=== PATIENT | female | born 1985 | race Caucasian/White ===

== ENCOUNTER 2016-07-21 12:38 | Emergency (ER) | payer OTHER ==
[2016-07-21 12:57] VITALS: TEMP 98.2; BMI 27.3
--- NOTE | 2016-07-21 14:03 | PDOC ---
History of Present Illness - General History Source: Patient, Spouse Exam Limitations: No Limitations - History of Present Illness Initial Comments: 07/21/16 14:14 The patient is a 31 year old female with no significant past medical history, presenting to the Emergency Department with diarrhea, and RLQ abdominal pain for three days. The patient reports that she has had episodes of diarrhea every time she eats or drinks. She admits that she is not able to sleep due to the pain and symptoms. The patients states that they ate [place] food a few days ago, but she is the only family member that is sick. She states she has tried many over the counter medications such as Pepto Bismol, with no relief. She admits that she has two small boys at home, though they are not sick. She denies previously having similar symptoms. The patient denies melena, or hematochezia. Patient denies fever, cough, and chills. Patient denies nausea, or vomiting. Patient denies back pain or neck pain. Patient denies dysuria, urinary frequency, and urgency. <Rocio Rodriguez - Last Filed: 07/21/16 14:14> <Carl Stewart - Last Filed: 07/21/16 17:11> - General Chief Complaint: Pain Stated Complaint: NAUSEA/ VOMITING Time Seen by Provider: 07/21/16 14:02 Past History <Rocio Rodriguez - Last Filed: 07/21/16 14:14> - Past Medical History Asthma: No Cancer: No Cardiac Disorders: No Diabetes: No HTN: No Seizures: No Thyroid Disease: No Other medical history: NONE - Psycho/Social/Smoking Cessation Hx Anxiety: No Suicidal Ideation: No Smoking History: Never smoked Have you smoked in the past 12 months: No Information on smoking cessation initiated: No Hx Alcohol Use: No Drug/Substance Use Hx: No Substance Use Type: None Hx Substance Use Treatment: No <Carl Stewart - Last Filed: 07/21/16 17:11> - Past Medical History Allergies/Adverse Reactions: Allergies Allergy/AdvReac Type Severity Reaction Status Date / Time No Known Allergies Allergy Verified 07/21/16 12:54 Home Medications: Ambulatory Orders Dicyclomine HCl [Bentyl] 10 mg PO TID #30 capsule 07/21/16 Loperamide HCl [Imodium -] 2 mg PO Q8H #21 capsule 07/21/16 Review of Systems - Review of Systems Able to Perform ROS?: Yes Comments:: 07/21/16 14:14 GENERAL/CONSTITUTIONAL: No fever or chills. No weakness. HEAD, EYES, EARS, NOSE AND THROAT: No change in vision. No ear pain or discharge. No sore throat. CARDIOVASCULAR: No chest pain or shortness of breath. RESPIRATORY: No cough, wheezing, or hemoptysis. GASTROINTESTINAL: + RLQ pain, + diarrhea. No nausea, vomiting, or constipation. GENITOURINARY: No dysuria, frequency, or change in urination. MUSCULOSKELETAL: No joint or muscle swelling or pain. No neck or back pain. SKIN: No rash NEUROLOGIC: No headache, vertigo, loss of consciousness, or change in strength/ sensation. ENDOCRINE: No increased thirst. No abnormal weight change. HEMATOLOGIC/LYMPHATIC: No anemia, easy bleeding, or history of blood clots. ALLERGIC/IMMUNOLOGIC: No hives or skin allergy. <Rocio Rodriguez - Last Filed: 07/21/16 14:14> *Physical Exam - Vital Signs Last Vital Signs Temp Pulse Resp BP Pulse Ox 98.2 F 90 18 123/80 100 07/21/16 12:55 07/21/16 12:55 07/21/16 12:55 07/21/16 12:55 07/21/16 12:55 - Physical Exam Comments: 07/21/16 14:15 GENERAL: Awake, alert, and fully oriented, in no acute distress HEAD: No signs of trauma EYES: PERRLA, EOMI, sclera anicteric, conjunctiva clear ENT: Auricles normal inspection, hearing grossly normal, nares patent, oropharynx clear without exudates. Moist mucosa NECK: Normal ROM, supple, no lymphadenopathy, JVD, or masses LUNGS: Breath sounds equal, clear to auscultation bilaterally. No wheezes, and no crackles HEART: Regular rate and rhythm, normal S1 and S2, no murmurs, rubs or gallops ABDOMEN: Tenderness to palpation at the RLQ, no gaurding, no rebound. Soft, normoactive bowel sounds. No masses EXTREMITIES: Normal range of motion, no edema. No clubbing or cyanosis. No cords, erythema, or tenderness NEUROLOGICAL: Cranial nerves II through XII grossly intact. Normal speech SKIN: Warm, Dry, normal turgor, no rashes or lesions noted. <Rocio Rodriguez - Last Filed: 07/21/16 14:14> - Vital Signs Last Vital Signs Temp Pulse Resp BP Pulse Ox 98.2 F 90 18 123/80 100 07/21/16 12:55 07/21/16 12:55 07/21/16 12:55 07/21/16 12:55 07/21/16 12:55 <Carl Stewart - Last Filed: 07/21/16 17:11> ED Treatment Course - LABORATORY CBC & Chemistry Diagram: 07/21/16 12:58 07/21/16 12:58 <Carl Stewart - Last Filed: 07/21/16 17:11> *DC/Admit/Observation/Transfer - Attestations Scribe Attestion: 07/21/16 14:16 Documentation prepared by Rocio Rodriguez, acting as chief medical physicist for Carl Stewart DO. <Rocio Rodriguez - Last Filed: 07/21/16 14:14> - Discharge Dispostion Admit: No - Attestations Physician Attestion: 07/21/16 14:03 I, Dr. Carl Stewart, attest that this document has been prepared under my direction and personally reviewed by me in its entirety. I further attest, that it accurately reflects all work, treatment, procedures and medical decision -making performed by me. <Calr Stewart - Last Filed: 07/21/16 17:11> Diagnosis at time of Disposition: Gastroenteritis - Discharge Dispostion Disposition: HOME Condition at time of disposition: Good - Prescriptions Prescriptions: Dicyclomine HCl [Bentyl] 10 mg PO TID #30 capsule Loperamide HCl [Imodium -] 2 mg PO Q8H #21 capsule - Patient Instructions Printed Discharge Instructions: DI for Viral Gastroenteritis -- Adult Additional Instructions: Sarah- The immodium pills are for diarrhea. The zofran is for nausea. Clear Liquids only until the diarrhea stops completely Follow up with your doctor after memorial day Return to us if any problems or worse in any way. Best- Dr. Carl Stewart
[2016-07-21] MEDS ORDERED: SODIUM CHLORIDE 1,000 ML IV STA (14:05)
[2016-07-21] MEDS ORDERED: ONDANSETRON 4 MG/2 ML VIAL IVPB ONE (14:05)
[2016-07-21] MEDS ORDERED: ONDANSETRON 4 MG/2 ML VIAL ONE (14:53)
[2016-07-21 14:55] LABS: BASOPHIL 0.7 % (0-2.0); EOSINOPHIL 2.3 % (0-4.5); MCH 24.6 pg (25.7-33.7); MCHC 32.1 g/dl (32.0-36.0); MEAN CELL VOLUME 76.6 fl (80-96); NEUTROPHILS 78.9 % (42.8-82.8); PLATELET COUNT 261 K/MM3 (134-434); RDW 16.2 % (11.6-15.6)
[2016-07-21 15:14] LABS: INR 1.26 (0.82-1.09); PROTHROMBIN TIME (PATIENT) 13.9 SEC (9.98-11.88)
[2016-07-21 15:20] LABS: ALBUMIN 3.9 g/dl (3.4-5.0); ALK PHOS 106 U/L (45-117); ANION GAP 9 (8-16); BILIRUBIN,TOTAL 0.3 mg/dL (0.2-1.0); CALCIUM 9.1 mg/dL (8.5-10.1); CO2 25 mmol/L (21-32); CREATININE 0.7 mg/dL (0.55-1.02); GLUCOSE,RANDOM 96 mg/dL (74-106); SGOT/AST 31 U/L (15-37); SGPT/ALT 32 U/L (12-78); TOT PROT 8.4 g/dl (6.4-8.2)
[2016-07-21] MEDS ORDERED: DIPHENOXYLATE 2.5/ATROPINE.025 1 COMBO TABLET PO ONE (17:02)
[2016-07-21 17:09] LABS: URINE APPEARANCE CLEAR; URINE BILIRUBIN NEGATIVE (NEGATIVE); URINE COLOR YELLOW; URINE GLUCOSE (UA) NEGATIVE (NEGATIVE); URINE KETONE NEGATIVE (NEGATIVE); URINE NITRITE NEGATIVE (NEGATIVE); URINE UROBILINOGEN NEGATIVE E.U./dl (0.2-1.0)
[2016-07-21 17:29] LABS: URINE BLOOD 3+ (NEGATIVE); URINE LEUK ESTERASE TRACE (NEGATIVE); URINE PROTEIN 1+ (NEGATIVE)
[2016-07-21 17:30] LABS: URINE HYALINE CAST 3 /lpf; URINE MUCUS RARE; URINE RBC 106 /hpf (0-3); URINE WBC 11 /hpf (3-5)
[2016-07-21] MEDS ORDERED: DIPHENOXYLATE 2.5/ATROPINE.025 1 COMBO TABLET ONE (17:57)
[2016-07-21 18:35] VITALS: BP 120/76; PULSE 82
== END 2016-07-21 18:34 | disposition home or self-care (01) ==
LOC: JER 12:38
PROC: 3E033GC Introduction of Other Therapeutic Substance into Peripheral Vein, Percutaneous Approach (ICD-10-PCS; principal; 2016-07-21)
DX: K52.9 Noninfective gastroenteritis and colitis, unspecified (principal)
CPT/HCPCS: 36415; 80053; 81003; 81015; 83690; 84703; 85025; 85610; 96374; 99282-25

== ENCOUNTER 2018-12-23 09:15 | Inpatient (IN) | payer OTHER ==
[2018-12-23] MEDS ORDERED: ELECTROLYTE-148 SOLN 1,000 ML IV SCH (11:15)
--- NOTE | 2018-12-23 11:17 | HP ---
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: Alzheimer's, CVA, Dementia, Migraine, Multiple Sclerosis, Peripheral Neuropathy, Parkinson's, Seizure, Syncope, TIA, Vertigo, Other Cardiovascular: No: AFIB, Aneurysm, Aortic Insufficiency, Aortic Stenosis, CAD, CHF, Deep Vein Thrombosis, HTN, Hyperlipdemia, [place], Mitral Insufficiency, Mitral Stenosis, Murmur, Pulmonary Hypertension, Other Pulmonary: No: Asthma, Bronchitis, Cancer, COPD, O2 Dependent, Pneumonia, Previously Intubated, Pulmonary Embolus, Pulmonary Fibrosis, Sleep Apnea, Other Gastrointestinal: No: Ascites, Cancer, Constipation, Crohn's Disease, Diverticulitis, Diverticulosis, Esophageal Varices, Gastritis, GERD, GI Bleed, Hemorrhoids, Hiatal Hernia, Inflamatory Bowel Disease, Irritable Bowel Disease, Pancreatitis, Peptic Ulcer Disease, Ulcerative Colitis, Other Hepatobiliary: No: Cirrhosis, Cholelithiasis, Cholecystitis, Choledocholithiasis , Hepatitis A, Hepatitis B, Hepatitis C, Other Renal/: No: Renal Failure, Renal Inusuff, BPH, Cancer, Hematuria, Hemodialysis , Neurogenic Bladder, Renal Calculi, UTI, Other Reproductive: No: Ectopic , Endometriosis, Fibroids, PID, Polycystic Ovary Syndrome, Postmenopausal, Other ...: 3 ...Para: 2 ...Term: 0 ...: 2 ...Spon : 0 ...Induced : 0 ...LMP: 04/06/18 ... Weeks Gestation by Dates: 37.1 ...EDC by Dates: 01/12/19 ...EDC by Sono: 01/12/19 Heme/Onc: Yes: Anemia Infectious Disease: No: AIDS, C-Diff, Herpes Zoster, HIV, MRSA, STD's, Tuberculosis, VREF, Other Psych: No: Addictions, Anxiety, Bipolar, Depression, Panic, Psychosis, Schizophrenia, Other Musculoskeletal: No: Bursitis, Chronic low back pain, Hemiparesis, Hemiplegia, Osteoarthritis, Paraplegia, Other Rheumatology: No: Fibromyalgia, Gout, Lupus, Rheumatoid Arthritis, Sarcoidosis, Vasculitis, Other ENT: No: Allergic Rhinitis, Sinusitis, Other Endocrine: No: Niobrara's Disease, Roger's Disease, Diabetes Insipidus, Diabetes Mellitus, Hyperparathyroidism, Hyperthyroidism, Hypothyroidism, Osteopenia, SIADH, Other Dermatology: No: Basal Cell, Cellulitis, Eczema, Melanoma, Psoriasis, Squamous Cell, Other - Past Surgical History Past Surgical History: No: None, AAA Repair, AICD, Amputation, Appendectomy, Arthrosocopy, AV Fistula/Graft, Bariatric Surgery, Breast Biopsy, Bypass, CABG, Carotid Endarterectomy, Cataract Removal, Cholecystectomy, Colectomy, Colonoscopy, Colostomy, Craniotomy, , Cystectomy, Hernia Repair, Hysterectomy, Ileal Conduit, Ileosotomy, Joint Replacement, Kidney Transplant, Laminectomy, Liver Transplant, Mastectomy, Nephrectomy, Oopherectomy, Orchiectomy, Permanent Pacemaker, Prostatectomy, Splenectomy, Stent, Thoracotomy , TURP, Tonsillectomy, Tubal Ligation, Upper Endoscopy, Valve Replacement, Vasectomy, Vein Stripping/Ligation Hx Myomectomy: No Hx Transabdominal Cerclage: No - Smoking History Smoking history: Never smoked Have you smoked in the past 12 months: No - Alcohol/Substance Use Hx Alcohol Use: No Home Medications - Allergies Allergies/Adverse Reactions: Allergies Allergy/AdvReac Type Severity Reaction Status Date / Time No Known Allergies Allergy Verified 07/21/16 12:54 - Home Medications Home Medications: Ambulatory Orders Dicyclomine HCl [Bentyl] 10 mg PO TID #30 capsule 07/21/16 Loperamide HCl [Imodium -] 2 mg PO Q8H #21 capsule 07/21/16 Family Medical History Family History: Unremarkable Review of Systems Findings/Remarks: Mild pelvic pressure and contractions - Review of Systems Constitutional: reports: No Symptoms Eyes: reports: No Symptoms HENT: reports: No Symptoms Neck: reports: No Symptoms Cardiovascular: reports: No Symptoms Respiratory: reports: No Symptoms Gastrointestinal: reports: No Symptoms Genitourinary: reports: Other (mucus plu) Breasts: reports: No Symptoms Reported Musculoskeletal: denies: No Symptoms, Back Pain, Crepitus, Decreased ROM, Extremity Pain, Joint Pain, Joint Swelling, Muscle Pain, Muscle Cramps, Muscle Weakness, Other Integumentary: denies: No Symptoms, Blister, Bruising, Change in Color, Eczema, Erythema, Incision, Lesions, Lump, Pallor, Pruritis, Rash, Wound, Other Neurological: denies: No Symptoms, Change in LOC, Change in Speech, Confusion, Dizziness, Headache, Incoordination, Numbness, Parasthesia, Pre-Existing Deficit , Seizure, Syncope, Tremors, Unsteady Gait, Weakness, Other Endocrine: denies: No Symptoms, Excessive Sweating, Flushing, Increased Hunger, Increased Thirst, Intolerance to Cold, Intolerance to Heat, Unexplained Weight Gain, Unexplained Weight Loss, Other Hematology/Lymphatic: denies: No Symptoms, Easily Bruised, Excessive Bleeding, Swollen Glands, Other Psychiatric: reports: No Symptoms Physical Exam - Maternity Vital Signs: Vital Signs Temperature 98.7 F 12/23/18 10:15 Pulse Rate 67 12/23/18 10:15 Respiratory Rate 20 12/23/18 10:15 Blood Pressure 137/79 12/23/18 10:15 O2 Sat by Pulse Oximetry (%) Constitutional: Yes: Calm HENT: Yes: Atraumatic Neck: Yes: Supple Cardiovascular: Yes: Regular Rate and Rhythm Breast(s): Yes: Other (deferred) - Abdominal Exam/OB Number of Fetuses: Single Presentation: Vertex (bedside sono: Cephalic, OP, amniotic fluid subjectively normal) Contractions: Yes Regularity: Regular Intensity: Mild/Mod Monitor Mode: External Category: I Accelerations: Uniform Decelerations: None - Vaginal Exam/OB Vaginal Bleediing: Yes Speculum Exam: No Dilatation (cm): 6 Effacement (%): 60 Amniotic Membrane Status: Intact Nitrazine Test: Negative Presentation: Vertex/Position Station: -3 - Physical Exam Musculoskeletal: Yes: WNL Extremities: Yes: WNL Edema: Yes Edema: LLE: Trace, RLE: Trace Integumentary: Yes: WNL Deep Tendon Reflex Grade: Normal +2 ...Motor Strength: WNL Psychiatric: Yes: Alert, Oriented Imaging - Results Ultrasound: Report Reviewed Assessment/Plan 33 y/o @ 37.1wks, active labor, reassuring status and stable maternal condition. Patient OB summary reviewed and significant for possible marginal cord insertion and mild anemia, GBS negative. -Admission -intermittent monitoring -ambulation Ok -Pain control PRN -Expectant management
[2018-12-23 11:47] LABS: HEMATOCRIT 29.5 % (32.4-45.2); RBC 4.34 M/mm3 (3.60-5.2); WHITE BLOOD COUNT 9.2 K/mm3 (4.0-10.0)
[2018-12-23 11:48] LABS: BASO % 1.1 % (0-2.0); EOS % 0.6 % (0-4.5); LYMPH % 14.1 % (8-40); MCH 20.8 pg (25.7-33.7); MCHC 30.6 g/dl (32.0-36.0); MEAN PLT VOLUME 9.7 fl (7.5-11.1); MONO % 4.5 % (3.8-10.2); NEUT % 79.7 % (42.8-82.8); PLATELET COUNT 252 K/MM3 (134-434); RDW 19.3 % (11.6-15.6)
[2018-12-23 11:58] LABS: INR 0.95 (0.83-1.09); PROTHROMBIN TIME (PATIENT) 11.2 SEC (9.7-13.0)
[2018-12-23 12:01] VITALS: BMI 27.1
[2018-12-23 12:01] LABS: ACTIVATED PTT 27.1 SECONDS (25.2-36.5)
[2018-12-23 12:16] LABS: BLOOD UREA NITROGEN 9.8 mg/dL (7-18); CALCIUM 8.5 mg/dL (8.5-10.1); CREATININE 0.6 mg/dL (0.55-1.3); POTASSIUM 3.9 mmol/L (3.5-5.1)
[2018-12-23 12:26] LABS: ANISOCYTOSIS 2+; MACROCYTOSIS 0; PLATELET ESTIMATE NORMAL
[2018-12-23] MEDS ORDERED: OXYTOCIN 30 UNITS in 0.9% NS 30 UNIT/500 ML INFUS.BAG IVPB ONE (12:53)
[2018-12-23] MEDS ORDERED: OXYTOCIN 30 UNITS in 0.9% NS 30 UNIT/500 ML INFUS.BAG IVPB SCH (13:00)
[2018-12-23] MEDS ORDERED: DEXTROSE 5%-LACTATED RINGERS 1,000 ML IV SCH (13:00)
--- NOTE | 2018-12-23 13:30 | PN ---
Ante-Partal Exam - Subjective Subjective: Patient evaluated for progression of labor Vital Signs: Vital Signs Temperature 98.5 F 12/23/18 11:00 Pulse Rate 66 12/23/18 11:00 Respiratory Rate 20 12/23/18 11:00 Blood Pressure 131/73 12/23/18 11:00 O2 Sat by Pulse Oximetry (%) Bleeding: No Headache: No Visual changes: No Right upper quadrant pain: No - Contractions Contractions: Yes Regularity: Irregular Intensity: Mild/Mod Monitor Mode: External - Exam during Labor Heart Rate: 145 Variability: Moderate Category: I Monitor Accelerations: Present Monitor Decelerations: None Exam: Vaginal Dilatation (cm): 6 Effacement (%): 60 Amniotic Membrane Status: Intact Presentation: Vertex Station: -3 - Assessment/Plan Assessment/Plan: No significant cervical change from previous exam, reassuring status, stable maternal condition, OP position -Augmentation with pitocin -continuous monitoring
--- NOTE | 2018-12-23 14:09 | PN ---
Progress Note, Labor Vaginal Exam #1 Labor Exam Date: 12/23/18 Labor Exam Time: 14:08 Heart Rate (range): Cat I Dilatation: 7 Effacement (%): 90 Amniotic Membrane Status: Ruptured Presentation: Vertex/Position Station: -2 Remarks: Pt comfortable AROM, clears Discussed epidural prn pain Anticipate LOREN Pineda MD
[2018-12-23] MEDS: OXYTOCIN 20 UNITS in 0.9% NS 20 UNIT/1,000 ML INFUS.BAG IV SCH ×2 (14:25→18:50)
[2018-12-23] MEDS ORDERED: OXYTOCIN 20 UNITS in 0.9% NS 20 UNIT/1,000 ML INFUS.BAG IV ONE ×2 (14:25→18:51)
[2018-12-23] MEDS ORDERED: METHYLERGONOVINE MALEATE 0.2 MG/1 ML AMP IM PRN (14:37)
[2018-12-23] MEDS ORDERED: ACETAMINOPHEN 325 MG TABLET (FP) PO PRN (14:37)
[2018-12-23] MEDS ORDERED: BISACODYL 10 MG SUPP.RECT RC PRN (14:37)
[2018-12-23] MEDS ORDERED: BENZOCAINE 20% 57 GM BOTTLE TP PRN (14:37)
[2018-12-23] MEDS ORDERED: BENZOCAINE 28 GM HEMORRHOIDAL OINTMENT TP PRN (14:37)
[2018-12-23] MEDS ORDERED: WITCH HAZEL 50% (TUCKS) 40 PAD/JAR PAD TP PRN (14:37)
--- NOTE | 2018-12-23 14:37 | PN ---
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 No nuchal. No meconium. Spontaneous delivery of anterior shoulder and remaining body. Cord clamped and cut. Infant handed over to nursing staff. Vigorous. Weight pending. Apgars 9/9. Spontaneous delivery of intact placenta with 3VC. Perineum inspected, superficial midline degree noted but not bleeding and therefore not repaired. EBL 250ml. Fundus firm. Mother and baby doing well. Mari Pineda MD
[2018-12-23] MEDS ORDERED: IBUPROFEN 600 MG TABLET (FP) PO ONE (17:38)
[2018-12-23] MEDS: IBUPROFEN 600 MG TABLET (FP) PO PRN (17:45)
[2018-12-24 08:46] LABS: BASO % 0.8 % (0-2.0); EOS % 1.1 % (0-4.5); HEMATOCRIT 27.3 % (32.4-45.2); HEMOGLOBIN 8.4 GM/dL (10.7-15.3); LYMPH % 14.9 % (8-40); MCH 20.8 pg (25.7-33.7); MCHC 30.6 g/dl (32.0-36.0); MEAN CELL VOLUME 67.9 fl (80-96); MONO % 4.1 % (3.8-10.2); NEUT % 79.1 % (42.8-82.8); PLATELET COUNT 219 K/MM3 (134-434); RBC 4.02 M/mm3 (3.60-5.2); RDW 19.6 % (11.6-15.6); WHITE BLOOD COUNT 11.3 K/mm3 (4.0-10.0)
[2018-12-24] MEDS: IBUPROFEN 600 MG TABLET (FP) PO PRN (08:51)
--- NOTE | 2018-12-24 08:57 | PN ---
Post Progress Note - Subjective Subjective: Doing well. Pain controlled. Post Day: 1 Type of Delivery: Vital Signs: Vital Signs Temperature 98.8 F 12/24/18 06:00 Pulse Rate 61 12/24/18 06:00 Respiratory Rate 18 12/24/18 06:00 Blood Pressure 116/59 L 12/24/18 06:00 O2 Sat by Pulse Oximetry (%) 98 12/23/18 14:45 Uterus: Yes: Fundus below umbilicus Abdomen/GI: Yes: Abdomen soft, Passing flatus, Tolerating PO Lochia: Yes: Rubra Lochia, amount: Small Extremities: Yes: Calves non-tender Perineum: Yes: Intact Activity: Ambulating - Labs Labs: CBC WBC 9.2 K/mm3 (4.0-10.0) 12/23/18 11:25 RBC 4.34 M/mm3 (3.60-5.2) 12/23/18 11:25 Hgb 9.0 GM/dL (10.7-15.3) L 12/23/18 11:25 Hct 29.5 % (32.4-45.2) L D 12/23/18 11:25 MCV 68.0 fl (80-96) L 12/23/18 11:25 MCH 20.8 pg (25.7-33.7) L D 12/23/18 11:25 MCHC 30.6 g/dl (32.0-36.0) L 12/23/18 11:25 RDW 19.3 % (11.6-15.6) H 12/23/18 11:25 Plt Count 252 K/MM3 (134-434) 12/23/18 11:25 MPV 9.7 fl (7.5-11.1) 12/23/18 11:25 Absolute Neuts (auto) 7.4 K/mm3 (1.5-8.0) 12/23/18 11:25 Neutrophils % 79.7 % (42.8-82.8) 12/23/18 11:25 Lymphocytes % 14.1 % (8-40) 12/23/18 11:25 Monocytes % 4.5 % (3.8-10.2) 12/23/18 11:25 Eosinophils % 0.6 % (0-4.5) 12/23/18 11:25 Basophils % 1.1 % (0-2.0) 12/23/18 11:25 Nucleated RBC % 0 % (0-0) 12/23/18 11:25 Hypochromia 1+ 12/23/18 11:25 Platelet Estimate Normal 12/23/18 11:25 Polychromasia 1+ 12/23/18 11:25 Poikilocytosis 1+ 12/23/18 11:25 Anisocytosis 2+ 12/23/18 11:25 Microcytosis 2+ 12/23/18 11:25 Macrocytosis 0 12/23/18 11:25 Schistocytes 1+ 12/23/18 11:25 Assessment/Plan 33yo s/p , PPD#1 Routine PP care AM Labs pending PO pain control D/C tomorrow, PPD#2 Lucinda Pineda MD
[2018-12-24] MEDS: BISACODYL 10 MG SUPP.RECT RC ONE ×2 (10:00→10:02)
[2018-12-24] MEDS: PRENATAL VITAMINS W/ FOLIC ACID TABLET (FP) PO SCH (10:00)
[2018-12-24] MEDS ORDERED: DIPHTH,PERTUSS(ACELL),TET 0.5 ML DISP.SYRIN IM ONE (10:00)
[2018-12-24] MEDS ORDERED: SENNOSIDES/DOCUSATE COMBO (SENNA PLUS) TABLET (UD) PO PRN (22:00)
--- NOTE | 2018-12-25 08:16 | DS ---
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: Vital Signs Temperature 98.4 F 12/24/18 21:09 Pulse Rate 67 12/24/18 21:09 Respiratory Rate 20 12/24/18 21:09 Blood Pressure 111/50 L 12/24/18 21:09 O2 Sat by Pulse Oximetry (%) 98 12/23/18 14:45 Constitutional: Yes: Well Nourished, No Distress, Calm Eyes: Yes: WNL, Conjunctiva Clear, EOM Intact HENT: Yes: WNL, Atraumatic, Normocephalic Neck: Yes: WNL, Supple, Trachea Midline Cardiovascular: Yes: WNL, Regular Rate and Rhythm Respiratory: Yes: WNL, Regular, CTA Bilaterally Gastrointestinal: Yes: WNL ...Rectal Exam: Yes: WNL Renal/: Yes: WNL ....Post : Yes: Uterus firm, Uterus non-tender, Slight lochia rubra Breast(s): Yes: WNL Musculoskeletal: Yes: WNL Extremities: Yes: WNL Integumentary: Yes: WNL Neurological: Yes: WNL, Alert, Oriented ...Motor Strength: WNL Psychiatric: Yes: WNL, Alert, Oriented Labs: CBC, BMP 12/24/18 07:45 12/23/18 11:25 Delivery - Delivery Vaginal Delivery: Spontaneous Type of Anesthesia: None Episiotomy/Laceration: None EBL (cc): 250 Delivery, Single - Stages of Labor Date 1st Stage Initiatied: 12/23/18 Time 1st Stage Initiated: 12:00 Date 2nd Stage Initiated: 12/23/18 Time 2nd Stage Initiated: 14:15 Date of Delivery: 12/23/18 Time of Delivery: 14:22 Time Placenta Delivered: 14:25 Placenta: Yes: Spontaneous - 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 Gender: Male Weight: 6 lb 6 oz Position: Left, OA Total Hours ROM (Hrs/Mins): 0HRS/22MINS - 1 Minute Total Score: 9 5 Minutes Total Score: 9 - [place] Feeding Plan Initial Plan: Elected not to breastfeed exclusively throughout hospitalization Discharge Summary Reason For Visit: LABOR ADMISSION Procedures: Principal: Condition: Stable - Instructions Diet, Activity, Other Instructions: Regular Diet Follow up in 4-6 weeks for your visit Referrals: Mari Pineda MD [Staff Physician] - Disposition: HOME - Home Medications Comprehensive Discharge Medication List: Ambulatory Orders Dicyclomine HCl [Bentyl] 10 mg PO TID #30 capsule 07/21/16 Loperamide HCl [Imodium -] 2 mg PO Q8H #21 capsule 07/21/16 Ibuprofen 600 mg PO Q6H PRN #30 tablet 12/24/18
[2018-12-25 09:18] VITALS: BP 123/88; PULSE 75; TEMP 98
[2018-12-25] MEDS: IBUPROFEN 600 MG TABLET (FP) PO PRN (09:39)
[2018-12-25] MEDS: PRENATAL VITAMINS W/ FOLIC ACID TABLET (FP) PO SCH (09:39)
== END 2018-12-25 12:30 | disposition home or self-care (01) | DRG 560 ==
LOC: JDEL 09:15 → JLDR 10:45 → J3W 22:30
PROVIDERS: ADMIT Student in an Organized Health Care Education/Training Program; ATTEND Student in an Organized Health Care Education/Training Program
PROC: 10E0XZZ Delivery of Products of Conception, External Approach (ICD-10-PCS; principal; 2018-12-23)
PROC: 0W8NXZZ Division of Female Perineum, External Approach (ICD-10-PCS; 2018-12-23)
DX: O80 Encounter for full-term uncomplicated delivery (principal); Z3A.37 37 weeks gestation of pregnancy; Z37.0 Single live birth
CPT/HCPCS: 36415; 59025; 59409; 80048; 85025; 85610; 85730; 86593; 86850; 86900; 86901; 90715